=== PATIENT | female | born 1990 | race Caucasian/White ===

== ENCOUNTER 2022-02-15 16:46 | Outpatient (CLI) | payer SELFPAY ==
[2022-02-15 20:55] LABS: BASOPHILS # (AUTO) 0.1 10^3/uL (0.0-0.1); BASOPHILS % (AUTO) 0.6 %; EOSINOPHILS # (AUTO) 0.1 10^3/uL (0.0-0.7); EOSINOPHILS % (AUTO) 1.6 %; HCT - HEMATOCRIT 44.2 % (37.0-47.0); HGB - HEMOGLOBIN 14.4 g/dL (12.0-16.0); LYMPHOCYTES # (AUTO) 1.9 10^3/uL (1.5-3.5); LYMPHOCYTES % (AUTO) 20.8 %; MEAN CORPUSCULAR HEMOGLOBIN 28.3 pg (27.0-31.0); MEAN CORPUSCULAR HGB CONC 32.6 g/dL (32.0-36.0); MEAN CORPUSCULAR VOLUME 86.8 fL (81.0-99.0); MEAN PLATELET VOLUME 11.9 fL (7.9-10.8); MONOCYTES # (AUTO) 0.6 10^3/uL (0.0-1.0); MONOCYTES % (AUTO) 6.6 %; NEUTROPHILS # (AUTO) 6.3 10^3/uL (1.5-6.6); NEUTROPHILS % (AUTO) 70.2 %; PLT - PLATELET COUNT 244 10^3/uL (130-450); RED BLOOD COUNT 5.09 10^6/uL (4.20-5.40); RED CELL DISTRIBUTION WIDTH 12.4 % (12.0-15.0)
[2022-02-15 20:59] LABS: CALCIUM 9.3 mg/dL (8.5-10.3); CREATININE 0.7 mg/dL (0.4-1.0); POTASSIUM 4.1 mmol/L (3.5-5.0)
== END 2022-02-15 16:47 | disposition home or self-care (01) ==
LOC: LAB.N 16:46
PROVIDERS: ATTEND Physician Assistant
DX: R03.0 Elevated blood-pressure reading, without diagnosis of hypertension (principal)
CPT/HCPCS: 36415; 80048; 84443; 85025

== ENCOUNTER 2022-07-15 12:30 | Outpatient (CLI) | payer BC ==
--- NOTE | 2022-07-15 16:00 | XRAY Report ---
PROCEDURE: Wrist 4 View RT INDICATIONS: WRIST PAIN TECHNIQUE: 4 views of the wrist were acquired. COMPARISON: None. FINDINGS: Bones: No fractures or dislocations. No suspicious bony lesions. Scaphoid view: No trauma found. Soft tissues: No suspicious soft tissue calcifications. IMPRESSION: No trauma found, normal alignment. Reviewed by: Sumeet Jain MD on 07/15/2022 3:59 PM PST Approved by: Sumeet Jain MD on 07/15/2022 3:59 PM [facility] Station ID: [id number]
== END 2022-07-15 12:31 | disposition home or self-care (01) ==
LOC: DI 12:30
PROVIDERS: ATTEND Family Medicine
DX: M25.531 Pain in right wrist (principal)

== ENCOUNTER 2022-12-15 08:00 | Outpatient (CLI) | payer OTHER, BC ==
--- NOTE | 2022-12-16 12:26 | XRAY Report ---
PROCEDURE: Hand 3 View RT INDICATIONS: RIGHT HAND PAIN TECHNIQUE: 3 views of the hand(s) acquired. COMPARISON: X-ray right wrist, 07/15/2022. FINDINGS: Bones: No fractures or dislocations. No suspicious bony lesions. Soft tissues: No suspicious soft tissue calcifications or masses. IMPRESSION: 1. No acute osseous abnormality. If clinical symptoms persist, consider a repeat examination in 7-10 days. Reviewed by: Jamaica Celaya MD on 12/16/2022 12:25 PM PDT Approved by: Jamaica Celaya MD on 12/16/2022 12:25 PM PDT Station ID: [id number]
== END 2022-12-15 23:59 | disposition home or self-care (01) ==
LOC: DI.WOS 08:00
PROVIDERS: ATTEND Physician Assistant Surgical
DX: M65.4 Radial styloid tenosynovitis [de Quervain] (principal)

== ENCOUNTER 2025-05-08 19:17 | Observation (INO) ==
--- NOTE | 2025-05-08 19:26 | ED Physician Documentation ---
PD HPI ABD PAIN Stated complaint Stated Complaint: ABD PAIN Chief complaint Chief Complaint: Abd Pain History obtained from History obtained from: Patient Additional information Additional information: 34-year-old woman who is on control And blood pressure medication but otherwise relatively healthy. No history of abdominal surgeries. Little after 5 PM she developed sudden onset abdominal pain in the epigastric area with slight radiation to the shoulders and back. She is never had this before. She denies nausea accepted due to the pain. No changes in bowel movements. No fevers. On arrival she appears comfortable and has received a total of 150 mcg of fentanyl and route from EMS. Meds/Allgy Home Medications Ambulatory Orders Medication Instructions Recorded Confirmed escitalopram oxalate 10 mg tablet 10 mg PO QDAY 09/02/24 lisinopril 10 mg tablet 10 mg PO QDAY #90 tabs 07/16 hydrochlorothiazide 25 mg tablet 25 mg PO 09/02/24 Allergies Allergies Allergy/AdvReac Type Severity Reaction Status Date / Time No Known Drug Allergies Allergy Verified 05/08/25 19:24 PFSH Active Problems All Active Problems (Updated 05/08/25 @ 22:36 by Paulino aVldez MD) Biliary colic (Acute) Acute upper respiratory infection (Acute) Palpitations (Acute) Dizziness (Acute) Hypertension (Acute) Medical History Medical History (Updated 05/08/25 @ 22:36 by Paulino Valdez MD) No pertinent past medical history Social History Social History Do you feel safe in your home environment?: Yes History of physical, verbal, emotional, or financial abuse?: No Are you sexually active?: Yes Exam Exam Vital Signs: Vital Signs x48h Temp Pulse Resp BP Pulse Ox 05/08/25 21:24 84 18 140/108 H 97 05/08/25 19:19 36.9 C 91 22 158/116 H 98 Constitutional normal general appearance and no apparent distress Respiratory breath sounds equal bilaterally, normal respiratory effort and clear to auscultation bilaterally Cardiovascular normal heart rate noted, regular rhythm noted and no murmur Gastrointestinal abdomen normal to inspection, abdomen soft to palpation and nontender to palpation Results Vitals Vitals: Vital Signs - 24 hr 05/08/25 19:19 05/08/25 20:41 05/08/25 20:41 Temperature 36.9 C Temperature Source Oral Pulse Rate 91 Respiratory Rate 22 Blood Pressure 158/116 H O2 Saturation 98 O2 Source Room air Pain Intensity 2 6 6 05/08/25 21:24 05/08/25 22:16 Temperature Temperature Source Pulse Rate 84 Respiratory Rate 18 Blood Pressure 140/108 H O2 Saturation 97 O2 Source Room air Pain Intensity 4 5 Oxygen O2 Source Room air Labs Labs: Laboratory Tests 05/08/25 05/08/25 19:41 20:47 WBC 13.6 H RBC 4.89 Hgb 13.8 Hct 41.1 MCV 84.0 MCH 28.2 MCHC 33.6 RDW 13.2 Plt Count 269 MPV 11.4 H Neut # (Auto) 11.2 H Lymph # (Auto) 1.5 [place] # (Auto) 0.6 Eos # (Auto) 0.3 Baso # (Auto) 0.1 Absolute Nucleated RBC 0.00 Nucleated RBC % 0.0 Sodium 136 Potassium 3.5 Chloride 101 Carbon Dioxide 28 Anion Gap 7.0 BUN 13 Creatinine 0.7 Estimated GFR (MDRD) 96 Glucose 107 H Calcium 9.8 Total Bilirubin 0.4 AST 19 ALT 19 Alkaline Phosphatase 84 Total Protein 8.0 Albumin 4.8 Globulin 3.2 Albumin/Globulin Ratio 1.5 Lipase 19 Urine Color LIGHT YELLOW Urine Clarity HAZY Urine pH 6.5 Ur Specific [place] 1.015 Urine Protein NEGATIVE Urine Glucose (UA) NEGATIVE Urine Ketones NEGATIVE Urine Occult Blood NEGATIVE Urine Nitrite NEGATIVE Urine Bilirubin NEGATIVE Urine Urobilinogen 0.2 (NORMAL) Ur Leukocyte Esterase NEGATIVE Urine RBC None Seen Urine WBC 0-3 Ur Squamous Epith Cells MANY Squamous H Urine Bacteria None Seen Ur Microscopic Review INDICATED Urine Culture Comments NOT INDICATED Urine HCG, Qual NEGATIVE Rads (name of study) RUQ sono: Relevant Findings:: Final report received Interpretation: 1.Cholelithiasis with a 1 cm nonmobile stone at the gallbladder neck. No wall thickening, pericholecystic fluid or sonographic Duval's sign. 2.Liver is increased in echogenicity, most consistent with hepatic steatosis. PD Medical Decision Making ED course Complexity details: reviewed results (CBC showing leukocytosis, CMP grossly normal with mild hyperglycemia. Urinalysis and testing unremarkable.) ED course: This is a 34-year-old woman with history of hypertension on control pills who presents with acute epigastric pain starting suddenly with some radiation to the back and shoulders. On initial evaluation she is nontender. She is relatively young so doubt cause outside of the abdomen such as [place]. We will obtain some labs and trial some Maalox. If the Maalox is effective she may not need imaging especially given her very benign abdominal examination. After the Maalox I reexamined her. She had no improvement in her pain. On reexamination she now had mild tenderness in the right upper quadrant with borderline positive Duval sign so we will send her for an ultrasound. Also needed more pain medication so given Dilaudid and Toradol. Subsequent imaging did demonstrate gallstones with a stone lodged in the neck but no signs of cholecystitis. She was subsequently given divided doses of Toradol, morphine, Dilaudid with minimal improvement in her pain. As such reasonable to bring her in the hospital for intractable biliary colic. I called Dr Rosenthal at 10:35 PM, he was in the OR, and the OR crew will have him call me when he is scrubbed out. Discharge Plan Discharge Patient Disposition: ED Transfer to [facility] Condition: Stable Clinical Impression: Biliary colic Prescriptions: No Action lisinopril 10 mg tablet 10 mg PO QDAY Qty: 90 2RF Rx Instructions: pt will stop amlodipine escitalopram oxalate 10 mg tablet 10 mg PO QDAY hydrochlorothiazide 25 mg tablet 25 mg PO Patient Comments: TAKE ONE TABLET BY MOUTH ONE TIME DAILY Print Language: Hong Konger Stand Alone Forms: PCP List
[2025-05-08] MEDS: MAG HYDROX/AL HYDROX/SIMETH 30 ML UDC PO STA (19:37)
[2025-05-08 19:49] LABS: HCT - HEMATOCRIT 41.1 % (37.0-47.0); HGB - HEMOGLOBIN 13.8 g/dL (12.0-16.0); MEAN PLATELET VOLUME 11.4 fL (7.9-10.8); NRBC ABSOLUTE COUNT (AUTO) 0.00 x10^3/uL; NUCLEATED RED BLOOD CELLS AUTO 0.0 /100WBC; PLT - PLATELET COUNT 269 10^3/uL (130-450); RED CELL DISTRIBUTION WIDTH 13.2 % (12.0-15.0)
[2025-05-08 20:02] LABS: ALT ALANINE AMINOTRANSFERASE 19.0 IU/L (10-60); AST ASPARTATE AMINOTRANSFERASE 19.0 IU/L (10-42); BUN - BLOOD UREA NITROGEN 13.0 mg/dL (6-20); CARBON DIOXIDE - CO2 28.0 mmol/L (21-32); CREATININE 0.7 mg/dL (0.6-1.3); GFR - MDRD 96.0 (>89)
[2025-05-08] MEDS: HYDROmorphone 1 MG/ML CARPUJECT IVP STA (20:41)
[2025-05-08] MEDS: KETOROLAC 15 MG/ML VIAL IVP STA (20:41)
[2025-05-08 21:01] LABS: GLUCOSE, URINE (UA) NEGATIVE (NEGATIVE); HCG UR QUAL NEGATIVE; KETONES,URINE (UA) NEGATIVE (NEGATIVE); OCCULT BLOOD,URINE NEGATIVE (NEGATIVE)
--- NOTE | 2025-05-08 21:23 | Ultrasound Report ---
PROCEDURE: US Abdomen Limited INDICATIONS: RUQ paion TECHNIQUE: Real-time focused scanning was performed of the abdomen, with image documentation. COMPARISONS: None. FINDINGS: Liver: Liver is normal in size and increase in echogenicity. Gallbladder: There is a 1 cm nonmobile stone within the gallbladder neck. No wall thickening or pericholecystic edema. Biliary ducts: Intrahepatic bile ducts are non-dilated. Extrahepatic bile duct caliber measures 4.5 mm. Normal is 6-7 mm or less in diameter, or 10 mm or less post-cholecystectomy. Pancreas: Visualized portions of the pancreas are sonographically normal. The tail was not well-seen. Right kidney: Normal in size and echotexture. Right kidney measures 10.7 cm long. No hydronephrosis or nephrolithiasis. No solid masses. No complex renal cystic lesions which require follow-up. IVC: Intrahepatic inferior vena cava is patent. Miscellaneous: No free abdominal fluid. IMPRESSION: 1.Cholelithiasis with a 1 cm nonmobile stone at the gallbladder neck. No wall thickening, pericholecystic fluid or sonographic Duval's sign. 2.Liver is increased in echogenicity, most consistent with hepatic steatosis. Reviewed by: Keyshawn Gautam MD on 05/08/2025 9:22 PM PDT Approved by: Keyshawn Gautam MD on 05/08/2025 9:22 PM PDT Station ID: [id number]
[2025-05-08 21:26] LABS: SQUAMOUS EPITHELIAL CELL,UR MANY Squamous (<= Few)
[2025-05-08] MEDS: MORPHINE 2 MG/ML CARPUJECT IVP STA (22:16)
--- NOTE | 2025-05-08 23:50 | HISTORY & PHYSICAL EXAMINATION ---
Chief Complaint Chief Complaint Chief Complaint: Abdominal pain History of Present Illness Admitted From Admitted From:: ED History Obtained From History obtained from: Patient Exam Limitations: None History of Present Illness HPI Comment/Other: 34 female with sudden onset of mid-epigastric and RUQ pain at 5 pm today after having coffee at a local shop. She had mild nausea but no emesis. The pain was sharp, cramping, located in the mid-epigastric region and radiated to her right back and shoulder. She went to a friend's house but her pain did not improve so she came to the ED. Multiple narcotic doses were required to control her discomfort. An US revealed a single gallstone in an otherwise normal gallbladder. Dr. Valdez asked me to evaluate her for intractable biliary colic. At the time of my exam she was resting comfortably in the ED. She stated her pain was now a 4 rather than the 10 earlier today. She denies prior episodes of similar discomfort. Meds/Allgy Home Medications Ambulatory Orders Medication Instructions Recorded Confirmed escitalopram oxalate 10 mg tablet 10 mg PO QDAY 09/02/24 lisinopril 10 mg tablet 10 mg PO QDAY #90 tabs 07/16 hydrochlorothiazide 25 mg tablet 25 mg PO 09/02/24 Allergies Allergies Allergy/AdvReac Type Severity Reaction Status Date / Time No Known Drug Allergies Allergy Verified 05/08/25 19:24 PFSH Active Problems All Active Problems Biliary colic (Acute) Acute upper respiratory infection (Acute) Palpitations (Acute) Dizziness (Acute) Hypertension (Acute) Medical History Medical History No pertinent past medical history Social History Social History Do you feel safe in your home environment?: Yes History of physical, verbal, emotional, or financial abuse?: No Are you sexually active?: Yes POLST Patient has POLST: No POLST CPR Status: Attempt Resuscitation (CPR) Level of Medical Intervention: Full Treatment Review of Systems Status of ROS: 10 or more systems reviewed and unremarkable except as noted in history and below Prior Level of Functionality: Independent Exam Exam Vital Signs: Vital Signs x48h Temp Pulse Resp BP Pulse Ox 05/08/25 23:00 84 18 154/116 H 99 05/08/25 21:24 84 18 140/108 H 97 05/08/25 19:19 36.9 C 91 22 158/116 H 98 Constitutional normal general appearance and no apparent distress HENMT normocephalic, hearing grossly normal bilaterally and oropharynx normal Eyes PERRL, EOMs intact bilaterally, conjunctivae normal and no scleral icterus Neck/C-Spine visual inspection normal, trachea midline and thyroid normal Lymph no lymphadenopathy noted Respiratory breath sounds equal bilaterally, normal respiratory effort and clear to auscultation bilaterally Cardiovascular normal heart rate noted, regular rhythm noted and no murmur Gastrointestinal abdomen normal to inspection, abdomen soft to palpation, nondistended, normoactive bowel sounds, no hepatosplenomegaly, no masses and no hernia Some RUQ discomfort with deep palpation Extremities normal to inspection and normal to palpation Neurology no focal motor deficit noted and speech normal Psychiatry mental status grossly normal, thought process normal, cooperative and affect normal Skin skin color normal, no lesions, no jaundice and no petechiae Conclusion/Plan Problem List (1) Biliary colic: Plan: The patient likely suffered an attack of biliary colic and since the ED was not able to completely control her discomfort they recommended admission. She is not that uncomfortable and certainly does not need intervention tonight. She is a candidate for non-urgert or elective cholecystectomy. I explained to her that the OR is busy tomorrow and that there may not be time to add on an extra surgical case and that out-patient management with oral analgesics and diet modification with a surgical clinic appointment would be an option. She is worried that the pain will recur and would rather be admitted for pain control Plan 1) Admit to observation status 2) NPO 3) Tylenol/Ketorolac/prn IV Dilaudid 4) Labs in am 5) She will be evaluated by the surgical team on tomorrow and a decision regarding the timing of surgery may be made at that time. Lab Results 05/08/25 19:41 05/08/25 19:41 Diagnostic Imaging Results Diagnostic Imaging Results Comments: US - single gallstone in an otherwise normal gallbladder
[2025-05-09] MEDS ORDERED: SODIUM CHLORIDE FLUSH 0.9% 10 ML SYRINGE IVP PRN (01:10)
[2025-05-09] MEDS ORDERED: HYDROmorphone 0.5 MG/0.5 ML SYRINGE IVP PRN (01:10)
[2025-05-09] MEDS: LACTATED RINGERS 1,000 ML IV SCH (01:29)
[2025-05-09] MEDS: SODIUM CHLORIDE FLUSH 0.9% 10 ML SYRINGE IVP SCH (01:30)
[2025-05-09] MEDS: ACETAMINOPHEN 325 MG TABLET PO PRN (01:38)
[2025-05-09] MEDS: KETOROLAC 15 MG/ML VIAL IVP PRN (04:41)
[2025-05-09 05:51] LABS: HCT - HEMATOCRIT 40.2 % (37.0-47.0); HGB - HEMOGLOBIN 13.0 g/dL (12.0-16.0); MEAN PLATELET VOLUME 11.1 fL (7.9-10.8); NRBC ABSOLUTE COUNT (AUTO) 0.00 x10^3/uL; NUCLEATED RED BLOOD CELLS AUTO 0.0 /100WBC; PLT - PLATELET COUNT 255 10^3/uL (130-450); RED CELL DISTRIBUTION WIDTH 13.1 % (12.0-15.0)
[2025-05-09 06:10] LABS: ALT ALANINE AMINOTRANSFERASE 16.0 IU/L (10-60); AST ASPARTATE AMINOTRANSFERASE 17.0 IU/L (10-42); BUN - BLOOD UREA NITROGEN 10.0 mg/dL (6-20); CARBON DIOXIDE - CO2 28.0 mmol/L (21-32); CREATININE 0.6 mg/dL (0.6-1.3); GFR - MDRD 115.0 (>89)
[2025-05-09] MEDS: POTASSIUM CHLORIDE 20 MEQ TABLET PO ONE (08:24)
[2025-05-09] MEDS: ESCITALOPRAM 10 MG TABLET PO SCH (08:25)
--- NOTE | 2025-05-09 09:22 | PROVIDER PROGRESS NOTE ---
Subjective General Admit Date: 05/08/25 Other Other Information/Narrative: Patient is feeling much better this AM and would like to go home and have surgery later, if possible. She denies n/v. She has only had one does of tylenol this morning. Exam Exam Vital Signs: Vital Signs x48h Temp Pulse Resp BP Pulse Ox 05/09/25 04:47 97.9 F 65 18 132/92 H 98 Gen: NAD, alert and oriented CV: RRR Pulm: non labored, on RA Abd: soft, mild tenderness in epigastrium and RUQ to deep palpation. Negative kwong sign Ext: no c/c/e Impression/Plan Problem List (1) Biliary colic: Problem List Comment Problem List: 34 y/o F presents with first episode of biliary colic: - feeling better this AM - leukocytosis nearly resolved, pain improved. No wall thickening or edema on sono yesterday. - will adat, if tolerates will discharge. If not will consent for and perform lap sarah today. - SLIV this AM - plan to keep patient in observation status at this time.
--- NOTE | 2025-05-09 12:29 | PHARMACY PROGRESS NOTE ---
Best Possible Medication History Admit Date and Time: 05/08/25 2334 Home Medications Medication Instructions Recorded Confirmed Type escitalopram oxalate 10 mg tablet 10 mg PO DAILY 07/0305/09/25 History hydrochlorothiazide 25 mg tablet 25 mg PO DAILY 05/09/25 History amlodipine 10 mg tablet 10 mg PO DAILY 05/09/2501/26 History hydroxyzine HCl 10 mg tablet 10 mg PO DAILY PRN anxiet y 05/09/25 05/09/25 History norethindrone (contraceptive) 0.35 0.35 mg PO DAILY 05/09/25 History mg tablet (Emzahh) Processed by: Pharmacy Medications reviewed in ED?: No Medication History completed: Yes Patient Interview: Completed ([employer]) Secondary Source(s): Insurance records [facility] Statement: As the person ultimately responsible for medication therapy, providers are able to order a medication from an existing home medication list in [facility] via the "Reconcile Routine" prior to Confirmation of that medication by instructional support assistant. Such practice is discouraged except when the physician, in their clinical judgment, deems that a medical need exists for a medication without regard to previous use.
[2025-05-09 13:30] VITALS: TEMP 98.1
[2025-05-09] MEDS: ONDANSETRON ODT 4 MG TABLET TL PRN (14:21)
--- NOTE | 2025-05-09 14:24 | Discharge Summary ---
"Discharge Summary Admit Date: 05/08/25 Discharge Date: 05/09/25 Discharging Provider: Dr. Leary DIAGNOSES Admission Diagnoses: biliary colic Discharge Diagnoses with Status of Each Condition: biliary colic, resolved HPI History of Present Illness: 34 female with sudden onset of mid-epigastric and RUQ pain at 5 pm today after having coffee at a local shop and [place] food for lunch. She had mild nausea but no emesis. The pain was sharp, cramping, located in the mid-epigastric region and radiated to her right back and shoulder. She went to a friend's house but her pain did not improve so she came to the ED. Multiple narcotic doses were required to control her discomfort. An US revealed a single gallstone in an otherwise normal gallbladder. Dr. Valdez asked me to evaluate her for intractable biliary colic. At the time of my exam she was resting comfortably in the ED. She stated her pain was now a 4 rather than the 10 earlier today. She denies prior episodes of similar discomfort. CONSULTS | PROCEDURES Consultations: none Procedures: none HOSPITAL COURSE Hospital Course: Patient admitted under observation. She was feeling much better this morning and we discussed options including surgery today and oral trial to see if she is feeling well enough to go home as her symptoms have markedly improved. She wanted to try to eat and has tolerated clears and solid food without worsening pain. At this time, she may discharge home with plan for close followup and outpatient lap sarah. ALLERGIES Allergies Allergy/AdvReac Type Severity Reaction Status Date / Time No Known Drug Allergies Allergy Verified 05/08/25 19:24 MEDICATIONS Ambulatory Orders Medication Instructions Recorded Confirmed escitalopram oxalate 10 mg tablet 10 mg PO DAILY 07/0305/09/25 hydrochlorothiazide 25 mg tablet 25 mg PO DAILY 05/09/25 acetaminophen 325 mg tablet 650 mg (2 x 325 mg) PO Q6H PRN 05/09/25 Abdominal Pain #30 tabs amlodipine 10 mg tablet 10 mg PO DAILY 05/09/2501/26 hydroxyzine HCl 10 mg tablet 10 mg PO DAILY PRN anxiet y 05/09/25 05/09/25 ibuprofen 200 mg capsule 600 mg (3 x 200 mg) PO TID P RN 05/09/25 pain #30 caps norethindrone (contraceptive) 0.35 0.35 mg PO DAILY 05/09/25 mg tablet (Emzahh) ondansetron 4 mg disintegrating 4 mg translingual Q6H PRN Nausea / 05/09/25 tablet Vomiting #30 tabs PHYSICAL EXAM AT DISCHARGE Vital Signs: Vital Signs x48h Temp Pulse Resp BP Pulse Ox 05/09/25 13:20 98.1 F 76 18 131/90 H 97 05/09/25 09:45 97.7 F 72 16 133/103 H 97 Gen: NAD CV: RRR Pulm: non labored, on RA Abd: only very mild tenderness with deep palpation, negative Duval sign LABS 05/09/25 05:38 05/09/25 05:38 FOLLOW UP Follow Up: Dr. Leary on 05/14 at 15:00. TIME SPENT Time Spent in Discharge (Minutes): 32 Discharge Plan Discharge Patient Disposition: 01 Home, Self Care Condition: Stable Medically Cleared Date:: 05/09/25 Medically Cleared Comments:: pain improved, tolerating diet Prescriptions: New acetaminophen 325 mg Tablet 650 mg PO Q6H PRN (Reason: Abdominal Pain) Qty: 30 0RF ondansetron 4 mg Tablet,Disintegrating 4 mg translingual Q6H PRN (Reason: Nausea / Vomiting) Qty: 30 0RF ibuprofen 200 mg capsule 600 mg PO TID PRN (Reason: pain) Qty: 30 2RF Continued amlodipine 10 mg tablet 10 mg PO DAILY Patient Comments: TAKE 1 TABLET ONCE DAILY FOR TREATMENT OF HIGH BLOODPRESSURE norethindrone (contraceptive) [Emzahh] 0.35 mg tablet 0.35 mg PO DAILY Patient Comments: TAKE 1 TABLET ONCE DAILY hydroxyzine HCl 10 mg tablet 10 mg PO DAILY PRN (Reason: anxiety) Patient Comments: TAKE 1 TABLET NEEDED AT BEDTIME FOR ANXIETY AND INSOMNIA escitalopram oxalate 10 mg tablet 10 mg PO DAILY hydrochlorothiazide 25 mg tablet 25 mg PO DAILY Patient Comments: TAKE ONE TABLET BY MOUTH ONE TIME DAILY Activity Restrictions/Additional Instructions: Avoid fatty foods. No fast food, no creamy foods. Diet: Regular Assessment: Pain improved, tolerating diet Plan of Treatment: f/u with Dr. Leary next week to schedule elective surgery Print Language: Arabic Patient Instructions: ED Diet, Low Fat, ED Gallstones with Biliary Colic Stand Alone Forms: PCP List Follow-up Care: Evelyn Leary MD [Provider Admit Priv/Credential, Surgery, General] - 05/14/25 3:00 pm Vitals documented within 30 minutes of discharge?: Yes"
[2025-05-09 18:35] VITALS: BP 134/92; O2SAT 93
[2025-05-10] MEDS ORDERED: NORETHINDRONE 0.35 MG PO SCH (09:00)
== END 2025-05-09 18:20 | disposition home or self-care (01) ==
LOC: ED 19:17 → MS2 19:17
PROVIDERS: ADMIT Surgery; ATTEND Surgery
DX: K80.70 Calculus of gallbladder and bile duct without cholecystitis without obstruction; I10 Essential (primary) hypertension